=== PATIENT | male | born 1945 | race Caucasian/White ===

== ENCOUNTER 2023-01-17 14:23 | Emergency (ER) | payer OTHER ==
[~2023-01-17] VITALS: Ht 152.4 cm; Wt 81.7 kg
[~2023-01-17 14:23] MED LIST: Adult Low Dose81 MG; D3-20002000 UNIT PO; GLIM4; Glucophage1000 MG; Glucosamine Ch1 EAC4; INVOKANA300 MG; LOSARTAN POTAS100 MG PO; MICROZIDE12.5 MG PO; PIOG15 PO; Simvastatin20 MG PO
[2023-01-17 15:01] LABS: BASOPHILS ABSOLUTE AUTO 0.04 K/mm3 (0.00-0.23); BASOPHILS PERCENT AUTO 1 % (0-2); EOSINOPHILS ABSOLUTE AUTO 0.15 K/mm3 (0.00-0.68); EOSINOPHILS PERCENT AUTO 3 % (0-6); Hematocrit 34.2 % (37.0-53.0); Hemoglobin 10.8 g/dL (13.5-17.5); IMMATURE GRAN ABSOLUTE AUTO 0.02 K/mm3 (0.00-0.10); IMMATURE GRAN PERCENT AUTO 0 % (0-1); LYMPHOCYTES ABSOLUTE AUTO 0.74 K/mm3 (0.84-5.20); LYMPHOCYTES PERCENT AUTO 14 % (21-46); MONOCYTES ABSOLUTE AUTO 0.73 K/mm3 (0.16-1.47); MONOCYTES PERCENT AUTO 13 % (4-13); Mean Corpuscular HGB 28.3 pg (26.0-34.0); Mean Corpuscular HGB Conc 31.6 g/dL (31.5-36.5); Mean Corpuscular Volume 90 fL (80-100); Mean Platelet Volume 11.7 fL (9.1-12.4); NEUTROPHILS ABSOLUTE AUTO 3.77 K/mm3 (1.96-9.15); NEUTROPHILS PERCENT AUTO 69 % (41-73); Platelet Count 252 K/mm3 (150-400); RDW Coefficient Variation 15.8 % (11.7-14.2); RDW Standard Deviation 50.9 fL (35.1-46.3); Red Blood Cell Count 3.81 M/mm3 (4.30-5.90); White Blood Cell Count 5.45 K/mm3 (4.00-11.30)
[2023-01-17 15:23] LABS: Albumin, Blood 3.1 g/dL (3.4-5.0); Albumin/Globulin Ratio 0.8 (0.8-1.8); Bilirubin, Total 0.3 mg/dL (0.1-1.0); Bun/Creatinine Ratio 12.6 (12.0-20.0); Calcium, Blood 9.6 mg/dL (8.5-10.1); Creatinine, Blood 1.82 mg/dL (0.60-1.20); Globulin, Blood 3.8 g/dL (2.2-4.0); Potassium, Blood 4.3 mmol/L (3.5-5.5); Total Protein, Blood 6.9 g/dL (6.4-8.2)
[2023-01-17] MEDS ORDERED: AZIT500 PO (18:05)
[2023-01-17] MEDS ORDERED: Lasix20 MG PO (18:05)
[2023-01-17 18:26] LABS: Influenza A, PCR NEGATIVE (NEGATIVE); Influenza B, PCR NEGATIVE (NEGATIVE); Resp Syncytial Virus, PCR NEGATIVE (NEGATIVE); SARS-Cov-2 (COVID-19) PCR, MMC NEGATIVE (NEGATIVE)
== END 2023-01-17 19:04 | disposition home or self-care (01) ==
LOC: ER 14:23
PROVIDERS: Emergency Medicine; Physician Assistant
DX: I50.9 Heart failure, unspecified (principal); I42.9 Cardiomyopathy, unspecified; N18.30 Chronic kidney disease, stage 3 unspecified; Z79.899 Other long term (current) drug therapy; Z79.82 Long term (current) use of aspirin; Z87.891 Personal history of nicotine dependence; Z20.822 Contact with and (suspected) exposure to COVID-19
CPT/HCPCS: 0241U; 36415; 71046; 80053; 83880; 84484; 85025; 93005; 93010; 96365; 96366; 96375; 99284-25; A9270; J0696; J1940

== ENCOUNTER → 2023-02-17 | Outpatient (CLI) | payer OTHER ==
[~2023-02-17] MED LIST changes: +AZIT500 PO; +Lasix20 MG PO
[2023-02-17 16:11] LABS: Creatinine Urine 45.1 mg/dL (27.00-270.00); Protein, Urine Quantitative 124.5 mg/dL (0.0-11.9)
== END | disposition home or self-care (01) ==
LOC: LAB 12:09 → LAB SHORT 12:09 → LAB FUT 02-07 15:40
PROVIDERS: Internal Medicine Nephrology
DX: N18.30 Chronic kidney disease, stage 3 unspecified (principal); D63.1 Anemia in chronic kidney disease; N25.81 Secondary hyperparathyroidism of renal origin; E55.9 Vitamin D deficiency, unspecified; E78.00 Pure hypercholesterolemia, unspecified; D51.8 Other vitamin B12 deficiency anemias; D52.8 Other folate deficiency anemias; D50.9 Iron deficiency anemia, unspecified; R76.9 Abnormal immunological finding in serum, unspecified; R94.5 Abnormal results of liver function studies; R94.6 Abnormal results of thyroid function studies
CPT/HCPCS: 81050; 82043; 82570; 84156

== ENCOUNTER → 2023-03-18 | Outpatient (CLI) | payer OTHER ==
[2023-03-18 19:11] LABS: Bun/Creatinine Ratio 23.3 (12.0-20.0); Calcium, Blood 9.4 mg/dL (8.5-10.1); Creatinine, Blood 2.19 mg/dL (0.60-1.20); Potassium, Blood 4.4 mmol/L (3.5-5.5)
== END | disposition home or self-care (01) ==
LOC: LAB SHORT 16:28
PROVIDERS: Internal Medicine Cardiovascular Disease
DX: E78.49 Other hyperlipidemia (principal); I25.2 Old myocardial infarction; I25.9 Chronic ischemic heart disease, unspecified; I50.22 Chronic systolic (congestive) heart failure; I50.82 Biventricular heart failure; R06.02 Shortness of breath
CPT/HCPCS: 36415; 80048